=== PATIENT | female | born 1955 | race Caucasian/White ===

== ENCOUNTER → 2017-12-10 09:41 | Outpatient (CLI) | payer MEDICARE, OTHER, SELFPAY ==
--- NOTE | 2017-12-10 | DI.US.S_ITS ---
LIMITED ULTRASOUND OF LEFT BREAST: 12/10/2017 CLINICAL: Palpable left breast lump x 1month. Hx left mastectomy with saline implant reconstruction 2010. No prior exams were available for comparison. Color flow and real-time ultrasound of the left breast 12 o'clock region were performed on the areas of interest. There is 0.4 cm x 0.5 cm x 0.5 cm round cyst or mass in the left breast at 12 o'clock posterior depth. This round cyst is hypoechoic and is located superficial to the implant with suggestion of mass effect on the adjacent implant. This correlates as palpated. Evaluation is limited with ultrasound. IMPRESSION: INCOMPLETE: NEEDS ADDITIONAL IMAGING EVALUATION The 0.4 cm x 0.5 cm x 0.5 cm round cyst or mass along the surface of the implant in area of palpable abnormality is indeterminate. An MRI is recommended. This exam was interpreted at Station ID: [id number]. Electronically Signed By: Alexandre Hinojosa M.D. [email or web address]/:12/13/2017 08:16:30 Entry: - 12/13/2017 08:16:30 letter sent: Need MRI Ultrasound BI-RADS: 0 Indeterminate
== END ==
PROVIDERS: Family Provider Internal Medicine; PCP Family Medicine Geriatric Medicine; Visit Provider Family Medicine Geriatric Medicine
DX: R92.8 Other abnormal and inconclusive findings on diagnostic imaging of breast (principal); N63.20 Unspecified lump in the left breast, unspecified quadrant; Z90.12 Acquired absence of left breast and nipple
CPT/HCPCS: 76642

== ENCOUNTER → 2018-01-13 10:13 | Outpatient (CLI) | payer MEDICARE, OTHER, SELFPAY ==
--- NOTE | 2018-01-13 | DI.MG.S_ITS ---
UNILATERAL RIGHT DIGITAL SCREENING MAMMOGRAM 3D/2D WITH CAD WITH AUGMENTATION: 01/13/2018 CLINICAL: Routine screening. Personal history of breast cancer. Comparison is made to exams dated: 12/29/2016 mammogram, 12/25/2014 mammogram, and 12/19/2013 mammogram - [facility]. There are scattered fibroglandular elements in right breast. Current study was also evaluated with a Computer Aided Detection (CAD) system. Right breast implant is stable. No significant masses, calcifications, or other findings are seen in the breast. There has been no significant interval change. IMPRESSION: NEGATIVE There is no mammographic evidence of malignancy. A 1 year screening mammogram is recommended. This exam was interpreted at Station ID: [id number]. NOTE: For mammograms, a report in lay terms will be sent to the patient. Approximately 15% of breast malignancies will not be visualized mammographically. In the management of a palpable breast mass, a negative mammogram must not discourage biopsy of a clinically suspicious lesion. Electronically Signed By: Georgia jefferson/sara:01/13/2018 14:07:00 letter sent: Normal Exam ACR BI-RADS Category 1: Negative [id number]
== END ==
PROVIDERS: Family Provider Internal Medicine; PCP Family Medicine Geriatric Medicine; Visit Provider Family Medicine Geriatric Medicine
DX: Z12.31 Encounter for screening mammogram for malignant neoplasm of breast (principal); Z85.3 Personal history of malignant neoplasm of breast
CPT/HCPCS: 77063; 77065

== ENCOUNTER 2018-06-08 13:24 | Day surgery (SDC) | payer OTHER, MEDICARE, SELFPAY ==
--- NOTE | 2018-06-04 10:05 | PM.PREOP ---
Pre-operative Note Interval Note History & Physical reviewed/Exam performed by Physician: Yes Changes to H&P: No
--- NOTE | 2018-06-04 10:06 | P.OP_ITS ---
Procedure & Clinicians Procedure: Preoperative diagnoses: 1. Nuclear sclerotic cataract 2. Astigmatism which is to be corrected with a toric intraocular lens implant. 3. 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 Postoperative diagnoses: 1. Cataract removal with phacoemulsification with toric posterior chamber intraocular lens implant placed. Procedure: Phacoemulsification with posterior chamber toric intraocular lens implant. Surgeon: Citlalli Roberts MD Complications: None Specimen: None Implant: [id number]+20.5 axis 100, myopic target Blood loss: None Anesthesia: Retrobulbar with monitored standby Description of procedure: Patient presents with a complaint of decreased vi angel due to cataract which is affecting activities of daily living. The patient wants surgery to improve vision and astigmatism. The patient was taken to the operating room and proparacaine drops placed. Indelible ink garcia were placed at the 90 and 180 degree meridian. The patient was placed on the operating room table and given IV sedation. A retrobulbar block insert consisting of 6 cc of 2% xylocaine without epinephrine mixed half and half with 0.5% Marcaine with 1 cc of hyaluronidase added is placed between the medial and lateral 1/3 of the inferior orbital rim. Lid akinesia is obtain with 1% xylocaine with epinephrine infiltrated along the lid margin. The eye is manually massaged for 30 sec, prepped using Betadine solution, and draped in the usual sterile fashion. Very deepset eye. Temporal approach was made, a 1 mm side-port incision was made 90? from the proposed corneal wound. Phenylephrine 1.5% mixed with 1% xylocaine 0.2 cc was placed into the anterior chamber. Viscoat followed by Provisc was then placed. A 2.6 mm clear incision with a 2.6 mm blade was placed at the 170 degree meridian. A 360 degree capsulorrhexis style capsulotomy was then performed with a cystit ome needle on a Provisc. Hydrodelineation and hydrodissection were performed. The phacoemulsification unit is introduced, and sculpting used to groove the central lens. It is then removed in chopping mode. Epi nucleus is removed with epinuclear mode and irrigation aspiration was used to remove the peripheral cortex. The posterior capsule is polished. The intraocular lens is selected, inspected, power confirmed, and placed in the posterior chamber at the desired 100 degree meridian. The pupil was not constricted. The wound was stromally hydrated and tested for leaks, there was none and it was left sutureless. Vigamox 0.1 cc was placed into the anterior chamber. Kenalog 0.2 cc was placed in the superior subconjunctival space. A drop of antibiotic and was placed and the eye was patched and shielded. The patient was stable and returned to the recovery room in excellent condition. Dictated by: Citlalli Roberts MD Copy to: [facility]
[2018-06-08] MEDS: PROPARACAINE 0.5% OPHTH SOL 2 DROPS EYE-OP (13:43)
[2018-06-08 13:44] VITALS: BP 131/84; PULSE 86; RESP 16; TEMP 36.8; O2SAT 96
[2018-06-08] MEDS: CATARACT EYE COMPOUND (10 DROPS/SYRINGE) 3 DROPS EYE-OP (13:48)
[2018-06-08 13:50] VITALS: BMI 22.7
--- NOTE | 2018-06-08 15:05 | SUR.OPER ---
Supine on eye stretcher, head on extension cradle secured with tape. Arms tucked at sides with blanket. Pillow under knees.
[2018-06-08] MEDS: PHENYLEPHRINE/LIDOCAINE VIAL (OR) 0.2 ML EYE-OP (15:08)
[2018-06-08] MEDS: CHONDROIDTIN/SOD HYALURONATE 1.05 ML SYRINGE INTRAOCULA (15:09)
[2018-06-08] MEDS: MOXIFLOXACIN OPHTH DROPS 3 ML BOTTLE 2 DROPS INJ (15:09)
[2018-06-08] MEDS: TRIAMCINOLONE 50 MG/5 ML VIAL INJ (15:09)
[2018-06-08] MEDS: HYALURONATE SODIUM 10 MG/ML SYRINGE INJ (15:10)
[2018-06-08] MEDS: BALANCED SALT IRRIG SOLN NO.2 15 ML IRR (15:10)
[2018-06-08] MEDS: OFLOXACIN 0.3% OPHTH 5 ML 2 DROPS EYE-LEFT (15:12)
[2018-06-08] MEDS: BALANCED SALT IRRIG SOLN NO.2 500 ML, EPINEPHrine 1 MG IRR (15:13)
[2018-06-08] MEDS: LIDOCAINE 2% 4 ML, BUPIVACAINE 0.5% (PF) 4 ML, HYALURONIDASE 150 UNIT INJ (15:14)
[2018-06-08] MEDS: LIDOCAINE 1% W/EPI INJ 20 ML INJ (15:14)
[2018-06-08] MEDS: ERYTHROMYCIN OPHTH 1 GM OINT 1 APPLIC EYE-LEFT (15:17)
[2018-06-08 15:45] VITALS: BP 143/84; PULSE 78; RESP 16; TEMP 37.1; O2SAT 97
== END 2018-06-08 16:05 | disposition home or self-care (01) ==
LOC: OR 13:25
PROVIDERS: Family Provider Internal Medicine; PCP Family Medicine Geriatric Medicine; Visit Provider Ophthalmology
DX: H25.12 Age-related nuclear cataract, left eye (principal); H52.202 Unspecified astigmatism, left eye
CPT/HCPCS: J0171; J2704; J3301; J3470; V2787

== ENCOUNTER 2018-06-22 09:44 | Day surgery (SDC) | payer OTHER, MEDICARE, SELFPAY ==
--- NOTE | 2018-06-18 12:21 | PM.PREOP ---
Pre-operative Note Interval Note History & Physical reviewed/Exam performed by Physician: Yes Changes to H&P: No
--- NOTE | 2018-06-18 12:21 | PM.OP.1 ---
Operative Date/Time/Diagnoses Date of procedure: 06/22/18 Time of procedure: 10:45 Procedure & Clinicians Procedure: Preoperative diagnoses: 1. Right advanced nuclear sclerotic cataract 2. Astigmatism which is to be corrected with a toric intraocular lens implant. 3. Previous bone marrow transplant for leukemia. No active disease. Postoperative diagnoses: 1. Cataract removal with phacoemulsification with toric posterior chamber intraocular lens implant placed. Procedure: Phacoemulsification with posterior chamber toric intraocular lens implant. Surgeon: Citlalli Roberts MD Complications: None Specimen: None Implant: [id number]+19.0 [place] 075. Blood loss: None Anesthesia: Retrobulbar with monitored standby Description of procedure: Patient presents with a complaint of decreased vision due to cataract which is affecting activities of daily living. The patient wants surgery to improve vision and astigmatism. The patient was taken to the operating room and proparacaine drops placed. Indelible ink garcia were placed at the 90 and 180 degree meridian. The patient was placed on the operating room table and given IV sedation. A retrobulbar block consisting of 6 cc of 2% xylocaine without epinephrine mixed half and half with 0.5% Marcaine with 1 cc of hyaluronidase added is placed between the medial and lateral 1/3 of the inferior orbital rim. Lid akinesia is obtain with 1% xylocaine with epinephrine infiltrated along the lid margin. The eye is manually massaged for 30 sec, prepped using Betadine solution, and draped in the usual sterile fashion. Temporal approach was made, a 1 mm side-port incision was made 90? from the proposed corneal wound. Phenylephrine 1.5% mixed with 1% xylocaine 0.2 cc was placed into the anterior chamber. Viscoat followed by Jorge Luis was then placed. A 2.6 mm clear incision with a 2.6 mm blade was placed at the 170 degree meridian. A 360 degree capsulorrhexis style capsulotomy was then performed with a cystitome needle on a [place]. Hydrodelineation and hydrodissection were performed. The phacoemulsification unit is introduced, and sculpting used to groove the central lens. It is then removed in chopping mode. Epi nucleus is removed with epinuclear mode and irrigation aspiration was used to remove the peripheral cortex. The posterior capsule is polished. The intraocular lens is selected, inspected, power confirmed, and placed in the posterior chamber at the desired meridian of 75 degrees. The pupil was not constricted. The wound was stromally hydrated and tested for leaks, there was none and it was left sutureless. Vigamox 0.1 cc was placed into the anterior chamber. Kenalog 0.2 cc was placed in the superior subconjunctival space. A drop of antibiotic and was placed and the eye was patched and shielded. The patient was stable and returned to the recovery room in excellent condition. Dictated by: Citlalli Roberts MD Copy to: [facility]
[2018-06-22 09:56] VITALS: BP 145/92; PULSE 86; RESP 16; TEMP 36.4; O2SAT 96; BMI 22.9
[2018-06-22] MEDS: PROPARACAINE 0.5% OPHTH SOL 2 DROPS EYE-OP (10:08)
[2018-06-22] MEDS: CATARACT EYE COMPOUND (10 DROPS/SYRINGE) 3 DROPS EYE-OP (10:09)
[2018-06-22] MEDS: BALANCED SALT IRRIG SOLN NO.2 15 ML IRR (10:58)
[2018-06-22] MEDS: LIDOCAINE 1% W/EPI INJ 20 ML INJ (10:58)
[2018-06-22] MEDS: CHONDROIDTIN/SOD HYALURONATE 1.05 ML SYRINGE INTRAOCULA (10:58)
[2018-06-22] MEDS: HYALURONATE SODIUM 10 MG/ML SYRINGE INJ (10:58)
[2018-06-22] MEDS: NEOMYCIN/POLY/DEX OPHTH OINT 1 APPLIC EYE-RIGHT (10:59)
[2018-06-22] MEDS: MOXIFLOXACIN OPHTH DROPS 3 ML BOTTLE 2 DROPS INJ (10:59)
[2018-06-22] MEDS: OFLOXACIN 0.3% OPHTH 5 ML 2 DROPS EYE-RIGHT (10:59)
[2018-06-22] MEDS: TRIAMCINOLONE 50 MG/5 ML VIAL INJ (11:00)
[2018-06-22] MEDS: BALANCED SALT IRRIG SOLN NO.2 500 ML, EPINEPHrine 1 MG IRR (11:00)
[2018-06-22] MEDS: PHENYLEPHRINE/LIDOCAINE VIAL (OR) 0.2 ML EYE-OP (11:00)
[2018-06-22] MEDS: LIDOCAINE 2% 4 ML, BUPIVACAINE 0.5% (PF) 4 ML, HYALURONIDASE 150 UNIT INJ (11:01)
[2018-06-22 11:29] VITALS: BP 159/88; PULSE 89; RESP 16; TEMP 36.1; O2SAT 97
== END 2018-06-22 11:24 | disposition home or self-care (01) ==
LOC: OR 09:49
PROVIDERS: Family Provider Internal Medicine; PCP Family Medicine Geriatric Medicine; Visit Provider Ophthalmology
PROC: (CPT 66984; principal; 2018-06-22 10:45)
DX: H25.11 Age-related nuclear cataract, right eye (principal); H52.201 Unspecified astigmatism, right eye
CPT/HCPCS: 66984; J0171; J3301; J3470; V2787